=== PATIENT | male | born 1985 | race Asian ===

== ENCOUNTER 2019-04-02 23:36 | Emergency (ER) | payer SELFPAY ==
[~2019-04-02] VITALS: Ht 165.1 cm; Wt 73.0 kg
[2019-04-03] MEDS ORDERED: ALPRAZOLAM 0.25 MG TABLET PO ONE (02:00)
[2019-04-03] MEDS ORDERED: ONDANSETRON 4MG ODT PO ONE (02:00)
[2019-04-03 02:54] VITALS: BP 135/83
== END 2019-04-03 02:56 | disposition home or self-care (01) ==
LOC: ER 23:36
DX: F41.9 Anxiety disorder, unspecified (principal); R00.0 Tachycardia, unspecified; F12.10 Cannabis abuse, uncomplicated; R11.0 Nausea
CPT/HCPCS: 93005; 99284; Q0162